=== PATIENT | female | born 1990 | race Caucasian/White ===

== ENCOUNTER 2017-11-25 12:15 | Emergency (ER) | payer OTHER ==
[2017-11-25 12:46] VITALS: TEMP 98.4; BMI 25.9
--- NOTE | 2017-11-25 13:48 | PDOC ---
Attending Attestation - Resident Resident Name: StaceyKayy - HPI HPI: 11/25/17 15:59 Pt presents to the ED complaining of R sided pelvic pain that began after her [employer]BEST[employer] REMOVAL WORKER tried to remove an IUD. Patient denies fever, nausea and vomiting. Denies vaginal discharge. States that she was seen by her primary [employer]BE[employer] REMOVAL WORKER and another [employer]BE[employer] REMOVAL WORKER who were both unable to remove the IUD, but that it has been seen by US in ASBESTOS REMOVAL WORKER' s office 11/25/17 16:00 - Physicial Exam PE: 11/25/17 16:03 Agree with resident's exam. Patient is mildly uncomfortable. + tenderness in the RLQ without guarding or rebound. - Medical Decision Making 11/25/17 16:08 Pt presents to the ED complaining of R sided pelvic pain after failed attempt at IUD removal. Denies fevers, vaginal discharge or vaginal bleeding. Differential inlcudes PID, less likely uterine perforation, appendicitis. Will check labs and official US to evaluate for PID. Will check CT abdomen pelvis if US is negative.
[2017-11-25] MEDS ORDERED: ACETAMINOPHEN 1000 MG/100 ML VIAL (NON FORMULARY) IVPB ONE (13:55)
[2017-11-25] MEDS ORDERED: ACETAMINOPHEN INJECTION 100 ML IVPB ONE (14:08)
[2017-11-25 14:21] LABS: BASO % 0.4 % (0-2.0); EOS % 2.2 % (0-4.5); HEMATOCRIT 41.6 % (32.4-45.2); LYMPH % 40.6 % (8-40); MCH 30.7 pg (25.7-33.7); MCHC 33.8 g/dl (32.0-36.0); MEAN CELL VOLUME 90.8 fl (80-96); MONO % 6.1 % (3.8-10.2); NEUT % 50.7 % (42.8-82.8); PLATELET COUNT 260 K/MM3 (134-434); RBC 4.58 M/mm3 (3.60-5.2); RDW 13.1 % (11.6-15.6); WHITE BLOOD COUNT 6.8 K/mm3 (4.0-10.0)
[2017-11-25 14:47] LABS: ALBUMIN 3.7 g/dl (3.4-5.0); ANION GAP 6 MMOL/L (8-16); BLOOD UREA NITROGEN 11 mg/dL (7-18); CALCIUM 8.3 mg/dL (8.5-10.1); CHLORIDE 108 mmol/L (98-107); CO2 26 mmol/L (21-32); CREATININE 0.8 mg/dL (0.55-1.02); GLUCOSE,RANDOM 82 mg/dL (74-106); INR 1.04 (0.83-1.09); PROTHROMBIN TIME (PATIENT) 11.7 SEC (9.7-13.0); SGOT/AST 15 U/L (15-37); SGPT/ALT 20 U/L (12-78); SODIUM 140 mmol/L (136-145)
[2017-11-25 14:49] LABS: ALK PHOS 97 U/L (45-117); BILIRUBIN,TOTAL 0.3 mg/dL (0.2-1.0); TOT PROT 7.1 g/dl (6.4-8.2)
[2017-11-25 14:50] LABS: ACTIVATED PTT 32.1 SECONDS (25.2-36.5)
[2017-11-25] MEDS ORDERED: morphine CARPU-JECT 2 MG/1 ML DISP.SYRIN IVPUSH ONE (15:33)
[2017-11-25 15:45] LABS: URINE APPEARANCE SLCLOUDY; URINE BILIRUBIN NEGATIVE (<2.0 mg/dL); URINE COLOR YELLOW; URINE GLUCOSE (UA) NEGATIVE (NEGATIVE); URINE KETONE NEGATIVE (NEGATIVE); URINE LEUK ESTERASE NEGATIVE (NEGATIVE); URINE NITRITE NEGATIVE (NEGATIVE); URINE PROTEIN NEGATIVE (NEGATIVE); URINE UROBILINOGEN NEGATIVE mg/dL (0.2-1.0)
[2017-11-25 15:56] LABS: EPI CELLS FEW /HPF (FEW); URINE BACTERIA RARE /hpf (NONE SEEN); URINE MUCUS RARE
[2017-11-25] MEDS ORDERED: morphine SULFATE 4 MG/ML VIAL ONE (16:16)
[2017-11-25] MEDS ORDERED: SODIUM CHLORIDE 1,000 ML IV STA (17:19)
[2017-11-25] MEDS ORDERED: CEFTRIAXONE 250 MG in DEXTROSE 5%-WATER - 50 ML IVPB ONE (20:13)
[2017-11-25] MEDS ORDERED: cefTRIAXone SODIUM 1 GM VIAL ONE (20:18)
--- NOTE | 2017-11-25 21:00 | PDOC ---
History of Present Illness - General Chief Complaint: Pain Stated Complaint: PELVIC PAIN Time Seen by Provider: 11/25/17 13:42 History Source: Patient - History of Present Illness Initial Comments: 11/25/17 21:16 Pt is a 27yo F with no significant PMH presenting to ED with complaints of L sided pelvic pain that radiates up to the back. Pain has been going on for 2 weeks and has been getting worse. Pt said she went to her BUS DRIVER/MONITOR last week to get the IUD taken out because she wanted to have another baby. According to Pt, 2 attempts were made to remove the IUD but they were unsuccessful. Pt said she has an appointment on for removal. IUD has been in place for 4 years. She had her period last week and it was normal. She denies fevers, chills, vaginal discharge, vaginal bleeding, n/v/d, chest pain, SOB, headache. PCP: Casey BUS DRIVER/MONITOR: Nirmal PMH: see hpi PSH: none Meds: none Allergies: nkda Past History - Past Medical History Allergies/Adverse Reactions: Allergies Allergy/AdvReac Type Severity Reaction Status Date / Time No Known Allergies Allergy Verified 11/25/17 12:46 Home Medications: Ambulatory Orders Doxycycline Hyclate 100 mg PO BID #28 capsule 11/25/17 Ibuprofen 600 mg PO TID PRN #21 tablet 11/25/17 COPD: No - Reproductive History Is Patient Now?: No - Immunization History Immunization Up to Date: Yes - Suicide/Smoking/Psychosocial Hx Smoking History: Never smoked Have you smoked in the past 12 months: No Information on smoking cessation initiated: No Hx Alcohol Use: No Drug/Substance Use Hx: No Substance Use Type: None Review of Systems - Review of Systems Constitutional: No: Chills, Fever HEENTM: No: Recent change in vision, Double Vision Respiratory: No: Shortness of Breath Cardiac (ROS): No: Chest Pain, Lightheadedness, Palpitations ABD/GI: Yes: Abdominal cramping (LLQ pain). No: Blood Streaked Bowels, Constipated, Diarrhea, Nausea, Vomiting : No: Burning, Dysuria, Hematuria Musculoskeletal: Yes: Back Pain (L sided). No: Joint Swelling, Muscle Pain Neurological: No: Headache, Numbness, Paresthesia *Physical Exam - Vital Signs Last Vital Signs Temp Pulse Resp BP Pulse Ox 98.4 F 52 L 16 118/79 100 11/25/17 12:44 11/25/17 12:44 11/25/17 12:44 11/25/17 12:44 11/25/17 12:44 - Physical Exam General Appearance: Yes: Nourished, Appropriately Dressed, Mild Distress HEENT: positive: EOMI, S[place]. negative: Pale Conjunctivae, Scleral Icterus (R), Scleral Icterus (L), Pharyngeal Erythema Neck: positive: Trachea midline, Supple. negative: Lymphadenopathy (R), Lymphadenopathy (L) Respiratory/Chest: positive: Lungs Clear, Normal Breath Sounds. negative: Rales , Rhonchi, Stridor, Dullness Cardiovascular: positive: Regular Rhythm, S1, S2, Bradycardia. negative: Edema , JVD Vascular Pulses: Carotid (R): 2+, Carotid (L): 2+, Dorsalis-Pedis (R): 2+, Doralis-Pedis (L): 2+ Female Pelvic Exam: positive: cervical os closed, CMT, discharge (mucopurulent) , adnexal tenderness, other (IUD string not visualized). negative: vaginal bleeding Gastrointestinal/Abdominal: positive: Normal Bowel Sounds, Soft, Tenderness (LLQ , LUQ). negative: Increased Bowel Sounds, Distended, Guarding Musculoskeletal: positive: CVA Tenderness (L). negative: CVA Tenderness (R) Extremity: positive: Normal Capillary Refill Integumentary: positive: Normal Color, Dry, Warm Neurologic: positive: guest experience captain II-XII NML intact, Fully Oriented, Alert, Normal Mood/ Affect, Normal Response, Motor Strength 5/5 Deep Tendon Reflexes: Ankle (L): 2+, Ankle (R): 2+, Knee (L): 2+, Knee (R): 2+ ED Treatment Course - LABORATORY CBC & Chemistry Diagram: 11/25/17 14:02 11/25/17 14:02 - ADDITIONAL ORDERS Additional order review: Laboratory Results 11/25/17 11/25/17 11/25/17 14:50 14:50 14:02 PT with INR 11.70 INR 1.04 PTT (Actin FS) 32.1 Sodium Potassium Chloride Carbon Dioxide Anion Gap BUN Creatinine Creat Clearance w eGFR Random Glucose Calcium Total Bilirubin AST ALT Alkaline Phosphatase Total Protein Albumin Urine Color Yellow Urine Appearance Slcloudy Urine pH 5.0 Ur Specific Lorane 1.021 Urine Protein Negative Urine Glucose (UA) Negative Urine Ketones Negative Urine Blood 1+ H Urine Nitrite Negative Urine Bilirubin Negative Urine Urobilinogen Negative Ur Leukocyte Esterase Negative Urine WBC (Auto) <1 Urine RBC (Auto) 2 Ur Epithelial Cells Few Urine Bacteria Rare Urine Mucus Rare Urine HCG, Qual Negative 11/25/17 14:02 PT with INR INR PTT (Actin FS) Sodium 140 Potassium 4.0 Chloride 108 H Carbon Dioxide 26 Anion Gap 6 L BUN 11 Creatinine 0.8 Creat Clearance w eGFR > 60 Random Glucose 82 Calcium 8.3 L Total Bilirubin 0.3 AST 15 ALT 20 Alkaline Phosphatase 97 Total Protein 7.1 Albumin 3.7 Urine Color Urine Appearance Urine pH Ur Specific Lorane Urine Protein Urine Glucose (UA) Urine Ketones Urine Blood Urine Nitrite Urine Bilirubin Urine Urobilinogen Ur Leukocyte Esterase Urine WBC (Auto) Urine RBC (Auto) Ur Epithelial Cells Urine Bacteria Urine Mucus Urine HCG, Qual 11/25/17 14:02 RBC 4.58 MCV 90.8 MCHC 33.8 RDW 13.1 MPV 9.0 Neutrophils % 50.7 Lymphocytes % 40.6 H Monocytes % 6.1 Eosinophils % 2.2 Basophils % 0.4 - RADIOLOGY Radiology Studies Ordered: Category Date Time Status ABDOMEN & PELVIS CT WITH CONTR [CT] Stat CT Scan 11/25/17 16:06 Completed TRANSVAGINAL ULTRASOUND US [US] Stat Ultrasound 11/25/17 14:15 Completed - Medications Given in the ED: ED Medications Discontinued Medications Generic Name Dose Route Start Last Admin Trade Name Nigelq PRN Reason Stop Dose Admin Acetaminophen 1,000 mg 11/25/17 13:55 11/25/17 14:12 Ofirmev Injection - IVPB 11/25/17 13:56 1,000 mg ONCE ONE Administration Sodium Chloride 1,000 mls @ 1,000 mls/hr 11/25/17 17:19 11/25/17 17:26 Normal Saline - IV 11/25/17 18:18 1,000 mls/hr ASDIR STA Administration Ceftriaxone Sodium 250 mg/ 50 mls @ 100 mls/hr 11/25/17 20:13 11/25/17 20:27 Dextrose IVPB 11/25/17 20:42 100 mls/hr ONCE ONE Administration Morphine Sulfate 2 mg 11/25/17 15:33 11/25/17 16:19 Morphine Injection - IVPUSH 11/25/17 15:34 2 mg ONCE ONE Administration Medical Decision Making - Medical Decision Making 11/25/17 21:23 Pt is a 27yo F with no significant PMH presenting to ED with complaints of L sided pelvic pain that radiates up to the back. DDx: PID, TOA, ovarian torsion, endometritis, appendicitis, cholecystitis, colitis. Pt given fluids, Tylenol for pain. Zofran for nausea. Pt hemodynamically stable and afebrile. low suspicion for sepsis. Will do TVUS. if negative, considering CT. Labs: wnl. no elevated WBC, liver enzymes wnl. UA negative for infection TVUS negative for TOA or any acute pathology. Pt in acute pain, given morphine. CT negative for pathology. Called Dr. Kinney's office and spoke to Dr. watcher automat long goods, Dr. Rain. Agreed with plan to treat for PID and follow up in office. Upon reevaluation, pt seemed comfortable and was feeling better. Pt give ceftriaxone in ED. Pt reported to me that appointment with ob cancelled for . Advised pt to call office tomorrow and if any issues ensued to come back to ED. Pt hemodynamically stable, afebrile and not in pain. Can be d/c home and be treated with doxy 100mg for 2 weeks. Pt agreed to plan. Given return precautions and pt verbalized understanding. 11/25/17 23:19 *DC/Admit/Observation/Transfer Diagnosis at time of Disposition: PID (acute pelvic inflammatory disease) Abdominal pain Qualifiers: Abdominal location: left lower quadrant Qualified Code(s): R10.32 - Left lower quadrant pain - Discharge Dispostion Disposition: HOME Condition at time of disposition: Stable Decision to Admit order: No - Prescriptions Prescriptions: Doxycycline Hyclate 100 mg PO BID #28 capsule Ibuprofen 600 mg PO TID PRN #21 tablet PRN Reason: Pain - Referrals Referrals: Jason Peña MD [Primary Care Provider] - Jason Kinney MD [Non Staff, Medical] - - Patient Instructions Printed Discharge Instructions: Pelvic Inflammatory Disease Additional Instructions: You were seen here today for pelvic pain. We did blood work and an ultrasound and a CT scan. Everything was normal. We are treating you for pelvic inflammatory disease. I have given you prescriptions for an antibiotic and a pain medication. It can be picked up at [address] [place] [address] Kinney's office tomorrow and schedule an appointment. Please come back to the ED if the pain gets worse, if you start bleeding, if you notice abnormal discharge, if you develop fever, if you start to vomit or lose consciousness or if any new concerning symptom develops. Thank you Print Language: BENGALI - Post Discharge Activity
[2017-11-25 21:17] VITALS: BP 103/54; PULSE 54
== END 2017-11-25 21:17 | disposition home or self-care (01) ==
LOC: JER 12:15
PROC: 3E0337Z Introduction of Electrolytic and Water Balance Substance into Peripheral Vein, Percutaneous Approach (ICD-10-PCS; principal; 2017-11-25)
PROC: 3E03329 Introduction of Other Anti-infective into Peripheral Vein, Percutaneous Approach (ICD-10-PCS; 2017-11-25)
PROC: 3E033NZ Introduction of Analgesics, Hypnotics, Sedatives into Peripheral Vein, Percutaneous Approach (ICD-10-PCS; 2017-11-25)
PROC: 3E033NZ Introduction of Analgesics, Hypnotics, Sedatives into Peripheral Vein, Percutaneous Approach (ICD-10-PCS; 2017-11-25)
DX: N73.0 Acute parametritis and pelvic cellulitis (principal)
CPT/HCPCS: 36415; 74177-TC; 76830-TC; 80053; 81003; 81015; 84703; 85025; 85610; 85730; 87081; 87491; 87591; 96361; 96365; 96375; 99283-25; J0131; J7030

== ENCOUNTER 2018-11-30 11:54 | Inpatient (IN) | payer OTHER ==
[2018-11-30] MEDS ORDERED: CITRIC ACID/SODIUM CITRATE 30 ML UNIT-DOSE CUP PO ONE (12:45)
[2018-11-30] MEDS ORDERED: ELECTROLYTE-148 SOLN 1,000 ML IV SCH (12:45)
[2018-11-30] MEDS ORDERED: ELECTROLYTE-148 SOLN 1,000 ML IV ONE (12:45)
[2018-11-30 12:46] VITALS: BMI 34.5
[2018-11-30] MEDS ORDERED: OXYTOCIN 20 UNITS in 0.9% NS 20 UNIT/1,000 ML INFUS.BAG IV ONE (13:08)
[2018-11-30] MEDS ORDERED: ONDANSETRON 4 MG/2 ML VIAL IVPUSH PRN (14:21)
[2018-11-30] MEDS ORDERED: morphine SULFATE/PF 0.5 MG/ML (2cc Syringe - QUVA) EP ONE (14:21)
--- NOTE | 2018-11-30 14:36 | HP ---
Past Medical History - Primary Care Physician PCP:: Priyank Zamarripa - Admission Chief Complaint: 41 weeks, previous c/s, for repeat c/s History of Present Illness: 28 yo f edc by sono 11/23/18 41 weeks with previous c/s , for repeat c/ s , procedure risks discussed , cx 1 ft, non effaced -4 mi, fhr cat 1 Limitations to Obtaining History: Language Barrier - Past Medical History ...: 3 ...Para: 1 ...Term: 1 ...: 0 ...Spon : 0 ...Induced : 1 ...Multiple Gestation: 0 ...LMP: 02/18/18 ... Weeks Gestation by Dates: 40.5 ...EDC by Dates: 11/25/18 ...EDC by Sono: 11/23/18 - Past Surgical History Hx Myomectomy: No Hx Transabdominal Cerclage: No Additional Surgical History: D&C - Smoking History Smoking history: Never smoked Have you smoked in the past 12 months: No - Alcohol/Substance Use Hx Alcohol Use: No History of Substance Use: reports: None - Social History Usual Living Arrangement: Yes: With Spouse History of Recent Travel: No Home Medications - Allergies Allergies/Adverse Reactions: Allergies Allergy/AdvReac Type Severity Reaction Status Date / Time No Known Allergies Allergy Verified 11/30/18 12:27 - Home Medications Home Medications: Ambulatory Orders Vitamins (Sjr) - 1 tab PO DAILY 11/28/18 Review of Systems - Review of Systems Constitutional: reports: No Symptoms Eyes: reports: No Symptoms HENT: reports: No Symptoms Neck: reports: No Symptoms Cardiovascular: reports: No Symptoms Respiratory: reports: No Symptoms Gastrointestinal: reports: No Symptoms Genitourinary: reports: No Symptoms Musculoskeletal: reports: No Symptoms Integumentary: reports: No Symptoms Neurological: reports: No Symptoms Endocrine: reports: No Symptoms Hematology/Lymphatic: reports: No Symptoms Psychiatric: reports: No Symptoms Physical Exam - Maternity Vital Signs: Vital Signs Temperature 98.4 F 11/30/18 12:36 Pulse Rate 59 L 11/30/18 13:15 Respiratory Rate 20 11/30/18 13:15 Blood Pressure 123/55 L 11/30/18 13:15 O2 Sat by Pulse Oximetry (%) Constitutional: Yes: Well Nourished, No Distress, Calm Eyes: Yes: WNL, Conjunctiva Clear, EOM Intact HENT: Yes: WNL, Atraumatic, Normocephalic Neck: Yes: WNL, Supple, Trachea Midline Cardiovascular: Yes: WNL, Regular Rate and Rhythm Breast(s): Yes: WNL - Abdominal Exam/OB Fundal Height: 40 Number of Fetuses: Single Presentation: Vertex Contractions: Yes Regularity: Irregular Intensity: Unaware Monitor Mode: External Heart Rate Location: [facility] Category: I Accelerations: Uniform Decelerations: None - Vaginal Exam/OB Vaginal Bleediing: No Speculum Exam: No Dilatation (cm): 1 cm Effacement (%): 0 Amniotic Membrane Status: Intact Presentation: Vertex/Position Station: -4 - Physical Exam Musculoskeletal: Yes: WNL Edema: Yes Edema: LLE: Trace, RLE: Trace Deep Tendon Reflex Grade: Normal +2 ...Motor Strength: WNL Psychiatric: Yes: WNL Hemorrhage Risk Assessment - Risk Factors Medium Risk Factors: Yes: None High Risk Factors: Yes: None Risk Score: 1 Risk Level: Medium Risk Problem List - Problems (1) with 41 completed weeks gestation Code(s): Z3A.41 - 41 WEEKS GESTATION OF (2) Previous section complicating Code(s): O34.219 - MATERNAL CARE FOR UNSP TYPE SCAR FROM PREVIOUS DEL Assessment/Plan admit for repeat c/s, procedure risks discussed
[2018-11-30] MEDS ORDERED: PHENYLEPHRINE HCL 10 MG/1 ML SINGLE DOSE VIAL ONE (14:43)
[2018-11-30] MEDS ORDERED: oxyCODONE HCL 5 MG TABLET PO PRN (15:20)
[2018-11-30] MEDS ORDERED: BENZOCAINE 20% 57 GM BOTTLE TP PRN (15:20)
[2018-11-30] MEDS ORDERED: BENZOCAINE 28 GM HEMORRHOIDAL OINTMENT PR PRN (15:20)
[2018-11-30] MEDS ORDERED: diphenhydrAMINE HCL 25 MG CAPSULE (FP) PO PRN (15:20)
[2018-11-30] MEDS ORDERED: METHYLERGONOVINE MALEATE 0.2 MG/1 ML AMP IM PRN (15:20)
[2018-11-30] MEDS ORDERED: WITCH HAZEL 50% (TUCKS) 40 PAD/JAR PAD TP PRN (15:20)
--- NOTE | 2018-11-30 15:24 | OP ---
Operative Note - Note: Operative Date: 11/30/18 Pre-Operative Diagnosis: 41 weeks, previous c/s Operation: repeat LST c/s Findings: live baby boy, rot, 11/30 Surgeon: Priyank Zamarripa Bindery Machine Setter/Set Up Operator: Gurwinder Osullivan Anesthesiologist/LAUNDRY EQUIPMENT OPERATOR: Jean Claude Salinas Anesthesia: Spinal Specimens Removed: placenta Estimated Blood Loss (mls): 500 Drains & Tubes with Location: [facility] Drains, Volume Out (mls): 0 Operative Report Dictated: Yes
[2018-11-30] MEDS ORDERED: DEXTROSE 5%-LACTATED RINGERS 1,000 ML IV SCH (15:30)
[2018-11-30] MEDS ORDERED: OXYTOCIN 20 UNITS in 0.9% NS 20 UNIT/1,000 ML INFUS.BAG IV SCH (15:30)
[2018-11-30] MEDS ORDERED: IBUPROFEN 800 MG/8 ML IJ IVPB ONE (15:55)
[2018-11-30] MEDS: IBUPROFEN 800 MG/8 ML IJ IVPB PRN ×2 (16:02→22:20)
[2018-11-30] MEDS ORDERED: CEFAZOLIN 1 GM/D5W 1 GM/50 ML BAG IVPB SCH (18:00)
[2018-11-30] MEDS: ACETAMINOPHEN 325 MG TABLET (FP) PO PRN (21:26)
[2018-11-30] MEDS: CEFAZOLIN 1 GM/D5W 1 GM/50 ML BAG IVPB SCH (21:37)
[2018-12-01] MEDS: CEFAZOLIN 1 GM/D5W 1 GM/50 ML BAG IVPB SCH (06:33)
[2018-12-01 07:54] LABS: BASO % 0.2 % (0-2.0); EOS % 0.6 % (0-4.5); HEMATOCRIT 32.6 % (32.4-45.2); LYMPH % 15.6 % (8-40); MCH 29.3 pg (25.7-33.7); MCHC 33.8 g/dl (32.0-36.0); MEAN CELL VOLUME 86.7 fl (80-96); MONO % 8.1 % (3.8-10.2); NEUT % 75.5 % (42.8-82.8); PLATELET COUNT 225 K/MM3 (134-434); RBC 3.76 M/mm3 (3.60-5.2); RDW 14.8 % (11.6-15.6)
[2018-12-01] MEDS: oxyCODONE HCL 5 MG TABLET PO PRN ×3 (07:54→18:47)
[2018-12-01] MEDS: ACETAMINOPHEN 325 MG TABLET (FP) PO PRN ×3 (07:56→18:46)
[2018-12-01] MEDS: SIMETHICONE 80 MG TAB.CHEW (FP) PO PRN ×3 (07:57→18:46)
[2018-12-01] MEDS: ENOXAPARIN NA (PORCINE) 40 MG/0.4 ML DISP.SYRIN SQ SCH (10:00)
[2018-12-01] MEDS ORDERED: BISACODYL 10 MG SUPP.RECT PR PRN (15:20)
--- NOTE | 2018-12-02 07:30 | PN ---
Post Progress Note - Subjective Subjective: c/o pain scale 7/10 voiding with no problems passing flatus Post Day: 2 Type of Delivery: Repeat C/S Vital Signs: Vital Signs Temperature 97.9 F 12/01/18 22:00 Pulse Rate 60 12/01/18 22:00 Respiratory Rate 18 12/01/18 22:00 Blood Pressure 110/54 L 12/01/18 22:00 O2 Sat by Pulse Oximetry (%) 99 11/30/18 16:45 Breast Exam: Yes: Soft, Other (Bf ). No: Engorged Uterus: Yes: Fundus Firm, Fundus below umbilicus (tender) Incision: Yes: Josh intact. No: Redness, Oozing Abdomen/GI: Yes: Abdomen soft, Tender, Passing flatus, Tolerating PO (diet ). No: Abdominal Distention Lochia: Yes: Rubra Lochia, amount: Small Extremities: Yes: Calves non-tender Perineum: Yes: Intact Activity: Ambulating - Labs Labs: CBC WBC 10.0 K/mm3 (4.0-10.0) 12/01/18 07:30 RBC 3.76 M/mm3 (3.60-5.2) 12/01/18 07:30 Hgb 11.0 GM/dL (10.7-15.3) 12/01/18 07:30 Hct 32.6 % (32.4-45.2) 12/01/18 07:30 MCV 86.7 fl (80-96) 12/01/18 07:30 MCH 29.3 pg (25.7-33.7) 12/01/18 07:30 MCHC 33.8 g/dl (32.0-36.0) 12/01/18 07:30 RDW 14.8 % (11.6-15.6) 12/01/18 07:30 Plt Count 225 K/MM3 (134-434) 12/01/18 07:30 MPV 9.0 fl (7.5-11.1) 12/01/18 07:30 Absolute Neuts (auto) 7.6 K/mm3 (1.5-8.0) 12/01/18 07:30 Neutrophils % 75.5 % (42.8-82.8) 12/01/18 07:30 Lymphocytes % 15.6 % (8-40) D 12/01/18 07:30 Monocytes % 8.1 % (3.8-10.2) 12/01/18 07:30 Eosinophils % 0.6 % (0-4.5) 12/01/18 07:30 Basophils % 0.2 % (0-2.0) 12/01/18 07:30 Nucleated RBC % 0 % (0-0) 12/01/18 07:30 Problem List - Problems (1) care following delivery Code(s): Z39.2 - ENCOUNTER FOR ROUTINE FOLLOW-UP Assessment/Plan stable s/p po rc/s day #2 Plan : ct po care encourage ambulation
[2018-12-02] MEDS: SIMETHICONE 80 MG TAB.CHEW (FP) PO PRN ×3 (08:26→20:16)
[2018-12-02] MEDS: ACETAMINOPHEN 325 MG TABLET (FP) PO PRN ×3 (08:26→20:16)
[2018-12-02] MEDS: IBUPROFEN 600 MG TABLET (FP) PO PRN ×3 (08:27→20:16)
[2018-12-02] MEDS: ENOXAPARIN NA (PORCINE) 40 MG/0.4 ML DISP.SYRIN SQ SCH (10:43)
[2018-12-02] MEDS ORDERED: SENNOSIDES/DOCUSATE COMBO (SENNA PLUS) TABLET (UD) PO PRN (22:00)
[2018-12-03] MEDS: IBUPROFEN 600 MG TABLET (FP) PO PRN ×3 (03:33→13:43)
[2018-12-03] MEDS: SIMETHICONE 80 MG TAB.CHEW (FP) PO PRN ×3 (03:33→13:43)
[2018-12-03] MEDS: ACETAMINOPHEN 325 MG TABLET (FP) PO PRN ×3 (03:34→13:44)
--- NOTE | 2018-12-03 08:04 | PN ---
Post Progress Note - Subjective Subjective: 28yo s/p RLTCS, POD#3 Routine PP care PO pain control Labs pending for this morning OOB, ambulate Anticipate d/c to home today or POD#4 Post Day: 3 Type of Delivery: Repeat C/S Vital Signs: Vital Signs Temperature 97.8 F 12/02/18 20:50 Pulse Rate 67 12/02/18 20:50 Respiratory Rate 20 12/02/18 20:50 Blood Pressure 123/74 12/02/18 20:50 O2 Sat by Pulse Oximetry (%) 99 11/30/18 16:45 Uterus: Yes: Fundus below umbilicus Incision: Yes: Dressing dry and intact Abdomen/GI: Yes: Abdomen soft, Passing flatus, Tolerating PO Lochia: Yes: Rubra Lochia, amount: Small Extremities: Yes: Calves non-tender Perineum: Yes: Intact Activity: Ambulating - Labs Labs: CBC WBC 10.0 K/mm3 (4.0-10.0) 12/01/18 07:30 RBC 3.76 M/mm3 (3.60-5.2) 12/01/18 07:30 Hgb 11.0 GM/dL (10.7-15.3) 12/01/18 07:30 Hct 32.6 % (32.4-45.2) 12/01/18 07:30 MCV 86.7 fl (80-96) 12/01/18 07:30 MCH 29.3 pg (25.7-33.7) 12/01/18 07:30 MCHC 33.8 g/dl (32.0-36.0) 12/01/18 07:30 RDW 14.8 % (11.6-15.6) 12/01/18 07:30 Plt Count 225 K/MM3 (134-434) 12/01/18 07:30 MPV 9.0 fl (7.5-11.1) 12/01/18 07:30 Absolute Neuts (auto) 7.6 K/mm3 (1.5-8.0) 12/01/18 07:30 Neutrophils % 75.5 % (42.8-82.8) 12/01/18 07:30 Lymphocytes % 15.6 % (8-40) D 12/01/18 07:30 Monocytes % 8.1 % (3.8-10.2) 12/01/18 07:30 Eosinophils % 0.6 % (0-4.5) 12/01/18 07:30 Basophils % 0.2 % (0-2.0) 12/01/18 07:30 Nucleated RBC % 0 % (0-0) 12/01/18 07:30
[2018-12-03 08:15] LABS: BASO % 0.4 % (0-2.0); EOS % 1.4 % (0-4.5); HEMOGLOBIN 10.7 GM/dL (10.7-15.3); MCH 29.1 pg (25.7-33.7); MCHC 33.5 g/dl (32.0-36.0); MEAN PLT VOLUME 8.9 fl (7.5-11.1); MONO % 7.3 % (3.8-10.2); NEUT % 74.9 % (42.8-82.8); PLATELET COUNT 249 K/MM3 (134-434); RBC 3.68 M/mm3 (3.60-5.2); RDW 14.9 % (11.6-15.6); WHITE BLOOD COUNT 8.1 K/mm3 (4.0-10.0)
--- NOTE | 2018-12-03 08:21 | OP ---
DATE OF OPERATION: 11/30/2018 PREOPERATIVE DIAGNOSIS: , 41 weeks, post dates, previous section, requests a repeat section. POSTOPERATIVE DIAGNOSIS: , 41 weeks, post dates, previous section, requests a repeat section. PROCEDURE: Repeat low-segment transverse section. SURGEON: Priyank Zamarripa MD ELECTROSLAG WELDING MACHINE OPERATOR: JAKUB Ann ANESTHESIA: Spinal. ANESTHESIOLOGIST: Rodri Marinelli MD ESTIMATED BLOOD LOSS: 500 mL. OPERATING COURSE: Patient was taken to the operating room. Under adequate spinal anesthesia, abdomen and perineum were prepped and draped. Pfannenstiel abdominal skin incision was made. Abdominal wall was cut layer by layer. Anterior peritoneum was exposed and incised. Upon entering the abdominal cavity, lower uterine segment was identified and uterovesical fold of peritoneum established and bladder was pushed down. Then, with the lower blade of the Noemi retractor in the pelvis, a low transverse uterine incision was made. Incision extended laterally with bandage scissors. Amniotic sac was entered, clear fluid. Head delivered. Nasopharynx was suctioned, and live baby delivered without any difficulty. Placenta was delivered manually. Uterine cavity was cleaned of all remaining tissue. Uterine incision was closed in 2 layers, first layer with 0 Biosyn continuous suture, the second layer with 0 Biosyn imbricating the first layer. Bladder flap was closed with 0 Biosyn continuous suture. Both tubes and ovaries were checked and normal. No active bleeding was seen. All the lap pads, sponge, and instrument counts were correct. Then, peritoneum was closed with 0 Biosyn continuous suture. Muscles were brought together with interrupted sutures of 0 Biosyn. Fascia was closed with 0 Biosyn continuous suture, subcutaneous fat with interrupted suture of 0 Biosyn, and the skin was closed with zander. Patient tolerated the procedure well, left the OR in good condition. Mahin [id number]
[2018-12-03 08:56] VITALS: BP 110/62; PULSE 60; TEMP 97.9
[2018-12-03] MEDS: ENOXAPARIN NA (PORCINE) 40 MG/0.4 ML DISP.SYRIN SQ SCH (09:21)
--- NOTE | 2018-12-03 11:44 | PATH ---
Surgical Pathology Report Patient Name: SAMINA MASSEY Med. Rec. #: [id number] /Age/Gender: 1990 (Age: 28) / F Account: [id number] Location: [facility] OBS/GAS CONTROLLER Taken: 11/30/2018 Received: 12/01/2018 Reported: 12/03/2018 Physicians: Priyank Zamarripa M.D. Specimen(s) Received PLACENTA Clinical History , repeat Final Diagnosis PLACENTA: THIRD TRIMESTER PLACENTA WITH FOCAL CALCIFICATION. TRIVASCULAR CORD. MEMBRANES WITH NO DIAGNOSTIC ABNORMALITIES. Electronically Signed Puneet Orellana M.D. Gross Description The specimen is received fresh labeled placenta and is a 395 gram, 15 x15 x 3.1cm. placenta with attached membranes and umbilical cord. The attached membranes are glistening, translucent, and insert marginally. The umbilical cord measures 30 cm. in length and averages 1.3 cm. in diameter. The cord inserts centrally, 6 centimeter to the nearest margin. No true knots or strictures are identified. Cut surface of the umbilical cord reveals 3 vessels. Sectioning reveals red-brown, spongy parenchyma. No lesions are identified. Oil Speculator sections are submitted in three cassettes as follows: 1- membrane rolls and umbilical cord; 2-3- full thickness sections of placenta __ KWS/12/01/2018 sulki/12/01/2018
== END 2018-12-03 15:15 | disposition home or self-care (01) | DRG 540 ==
LOC: JLDR 11:54 → J3W 17:13
PROVIDERS: ADMIT Obstetrics & Gynecology; ATTEND Obstetrics & Gynecology
PROC: 10D00Z1 Extraction of Products of Conception, Low, Open Approach (ICD-10-PCS; principal; 2018-11-30)
DX: O34.211 Maternal care for low transverse scar from previous cesarean delivery (principal); N85.8 Other specified noninflammatory disorders of uterus; O48.0 Post-term pregnancy; Z3A.41 41 weeks gestation of pregnancy; Z37.0 Single live birth
CPT/HCPCS: 36415; 85025; 88307-TC

== ENCOUNTER 2022-03-06 17:53 | Emergency (ER) | payer OTHER ==
[2022-03-06 18:17] VITALS: BP 130/74; PULSE 68; RESP 18; TEMP 97.9; BMI 29.9
[2022-03-06] MEDS ORDERED: SODIUM CHLORIDE 0.9% 500 ML INFUS.BAG IV ONE (22:14)
[2022-03-06] MEDS ORDERED: KETOROLAC TROMETHAMINE 30 MG/1 ML VIAL IVPUSH ONE (22:14)
[2022-03-06] MEDS ORDERED: KETOROLAC TROMETHAMINE 30 MG/1 ML VIAL ONE (22:21)
[2022-03-06 22:26] LABS: BASO % 0.6 % (0-2.0); EOS % 2.9 % (0-4.5); HEMATOCRIT 43.2 % (32.4-45.2); HEMOGLOBIN 14.5 GM/dL (10.7-15.3); LYMPH % 27.5 % (8-40); MCH 30.3 pg (25.7-33.7); MCHC 33.6 g/dl (32.0-36.0); MEAN PLT VOLUME 8.8 fl (7.5-11.1); MONO % 5.7 % (3.8-10.2); NEUT % 63.3 % (42.8-82.8); PLATELET COUNT 344 10^3/uL (134-434); RDW 13.6 % (11.6-15.6); WHITE BLOOD COUNT 11.2 K/mm3 (4.0-10.0)
[2022-03-06 22:30] LABS: EPI CELLS >36 /uL (0-25.1); HYALINE CASTS 0 /uL (0-3.1); PH,URINE 6.5 (5.0-8.0); URINE APPEARANCE CLOUDY; URINE BACTERIA 727 /uL (0-1359); URINE BILIRUBIN NEGATIVE (NEGATIVE); URINE COLOR YELLOW; URINE GLUCOSE (UA) NEGATIVE (NEGATIVE); URINE KETONE NEGATIVE (NEGATIVE); URINE LEUK ESTERASE 2+ (NEGATIVE); URINE NITRITE NEGATIVE (NEGATIVE); URINE PROTEIN NEGATIVE (NEGATIVE); URINE RBC 14 /uL (0-23.9); URINE UROBILINOGEN 0.2 mg/dL (0.2-1.0); URINE WBC 71 /uL (0-25.8)
[2022-03-06 22:54] LABS: CALCIUM 9.1 mg/dL (8.5-10.1)
[2022-03-06 22:55] LABS: BLOOD UREA NITROGEN 13.5 mg/dL (7-18)
[2022-03-06 22:57] LABS: CREATININE 0.7 mg/dL (0.55-1.3)
[2022-03-06 22:59] LABS: BILIRUBIN,TOTAL 0.4 mg/dL (0.2-1)
[2022-03-06] MEDS ORDERED: CEPHALEXIN MONOHYDRATE 500 MG CAPSULE (UD) PO ONE (23:40)
[2022-03-07] MEDS ORDERED: CEPHALEXIN MONOHYDRATE 500 MG CAPSULE (UD) ONE (00:13)
== END 2022-03-07 03:33 | disposition home or self-care (01) ==
LOC: JER 17:53
PROC: 3E0333Z Introduction of Anti-inflammatory into Peripheral Vein, Percutaneous Approach (ICD-10-PCS; principal; 2022-03-06)
DX: R10.30 Lower abdominal pain, unspecified (principal); N39.0 Urinary tract infection, site not specified; K59.00 Constipation, unspecified
CPT/HCPCS: 36415; 74177-TC; 76830-TC; 80053; 81003; 84703; 85025; 87086; 87186; 99285-25; Q9967